=== PATIENT | male | born 1965 | race Caucasian/White ===

== ENCOUNTER 2016-12-27 18:07 | Emergency (ER) | payer SELFPAY ==
[~2016-12-27] VITALS: Ht 170.2 cm; Wt 74.0 kg
[2016-12-27 18:48] LABS: HEMATOCRIT 34.5 % (39.0-50.0); HEMOGLOBIN 12.1 g/dl (14.0-18.0); IMMATURE GRANULOCYTES 0.3 % (0.0-1.0); MEAN CELL VOLUME 83.9 fL CALC (80.0-100.0); MEAN CORPUSCULAR HGB 29.4 pG CALC (26.0-32.0); MEAN CORPUSCULAR HGB CONC 35.1 g/L CALC (32.0-36.0); NEUT# 9.57 thou/uL (1.82-7.42); RED BLOOD COUNT 4.11 mill/uL (4.70-6.10)
[2016-12-27 18:58] LABS: ALBUMIN 4.1 g/dL (3.2-5.0); ALKALINE PHOSPHATASE 87 u/l (38-126); ANION GAP 18 (6-22 (CALC)); BILIRUBIN, TOTAL 0.6 mg/dL (0.0-1.4); BUN 11 mg/dL (9-20); BUN/CREATININE RATIO 10 (12-20 (CALC)); CALCIUM 9.2 mg/dL (8.4-10.2); CARBON DIOXIDE 24 mmol/l (22-30); CHLORIDE 99 mmol/l (95-108); GFR > 60 ML/MIN (>=60 (CALC)); GFR FOR AFR.AMER. > 60 ML/MIN (>=60 (CALC)); GLUCOSE 106 mg/dL (75-110); POTASSIUM 4.2 mmol/l (3.5-5.1); SGOT/AST 22 u/l (17-59); SGPT/ALT 31 u/l (21-72); SODIUM 137 mmol/l (137-146); TOTAL PROTEIN 7.3 g/dL (6.3-8.2)
[2016-12-27 19:01] LABS: INFLUENZA A NONE DETECTED (NONE DETECT); INFLUENZA B NONE DETECTED (NONE DETECT)
[2016-12-27 23:21] VITALS: BP 99/62
== END 2016-12-27 23:22 | disposition home or self-care (01) | DRG 153 ==
LOC: ED 18:07
PROVIDERS: Emergency Medicine
DX: J02.9 Acute pharyngitis, unspecified (principal); R05 Cough
CPT/HCPCS: J0561

== ENCOUNTER 2017-03-14 11:32 | Emergency (ER) | payer SELFPAY ==
[~2017-03-14] VITALS: Ht 170.2 cm; Wt 75.0 kg
[2017-03-14 12:00] LABS: HEMATOCRIT 39.1 % (39.0-50.0); HEMOGLOBIN 13.5 g/dl (14.0-18.0); IMMATURE GRANULOCYTES 0.2 % (0.0-1.0); MEAN CELL VOLUME 87.3 fL CALC (80.0-100.0); MEAN CORPUSCULAR HGB 30.1 pG CALC (26.0-32.0); MEAN CORPUSCULAR HGB CONC 34.5 g/L CALC (32.0-36.0); NEUT# 1.9 thou/uL (1.82-7.42); RED BLOOD COUNT 4.48 mill/uL (4.70-6.10); RED CELL DISTRI WIDTH 12.9 % (11.5-15.5)
[2017-03-14 12:17] LABS: ALBUMIN 4.3 g/dL (3.2-5.0); ALKALINE PHOSPHATASE 56 u/l (38-126); ANION GAP 16 (6-22 (CALC)); BILIRUBIN, TOTAL 0.6 mg/dL (0.0-1.4); BUN 11 mg/dL (9-20); BUN/CREATININE RATIO 9 (12-20 (CALC)); CALCIUM 9.3 mg/dL (8.4-10.2); CARBON DIOXIDE 24 mmol/l (22-30); CHLORIDE 105 mmol/l (95-108); CREATININE 1.2 mg/dL (0.7-1.3); GFR > 60 ML/MIN (>=60 (CALC)); GFR FOR AFR.AMER. > 60 ML/MIN (>=60 (CALC)); GLUCOSE 114 mg/dL (75-110); POTASSIUM 4.3 mmol/l (3.5-5.1); SGOT/AST 21 u/l (17-59); SGPT/ALT 25 u/l (21-72); SODIUM 140 mmol/l (137-146); TOTAL PROTEIN 7.5 g/dL (6.3-8.2)
[2017-03-14 12:30] LABS: MYOGLOBIN 27 ng/mL (0 - 121)
[2017-03-14 13:33] LABS: URINE BILIRUBIN - DIPSTICK NEGATIVE (NEGATIVE); URINE BLOOD DIPSTICK NEGATIVE (NEGATIVE); URINE CLARITY CLEAR; URINE COLOR YELLOW; URINE GLUCOSE - DIPSTICK NEGATIVE (NEGATIVE); URINE KETONE NEGATIVE (NEGATIVE); URINE LEUK ESTERASE NEGATIVE (NEGATIVE); URINE NITRITE - DIPSTICK NEGATIVE (Negative); URINE PROTEIN - DIPSTICK TRACE mg/dL (NEG-TRACE); URINE SPECIFIC GRAVITY 1.015; URINE UROBILINOGEN - DIPSTICK 0.2 E.U./dL (0.2)
[2017-03-14 13:39] LABS: BARBITURATES NEGATIVE (NEGATIVE); COCAINE NEGATIVE (NEGATIVE); METHADONE NEGATIVE (NEGATIVE); OXCYCODONE NEGATIVE (NEGATIVE); TETRAHYDROCANNABIONOL NEGATIVE (NEGATIVE); TRICYLIC ANTIDEPRESSANTS NEGATIVE (NEGATIVE)
[2017-03-14 15:48] VITALS: BP 95/59
== END 2017-03-14 16:03 | disposition home or self-care (01) | DRG 312 ==
LOC: ED 11:32
PROVIDERS: Emergency Medicine
PROC: 0T9B70Z Drainage of Bladder with Drainage Device, Via Natural or Artificial Opening (ICD-10-PCS; principal; 2017-03-14)
DX: R55 Syncope and collapse (principal); R00.1 Bradycardia, unspecified; T50.995A Adverse effect of other drugs, medicaments and biological substances, initial encounter; Y92.007 Garden or yard of unspecified non-institutional (private) residence as the place of occurrence of the external cause

== ENCOUNTER 2018-07-25 07:47 | Day surgery (SDC) | payer OTHER ==
[~2018-07-25] VITALS: Ht 170.2 cm; Wt 75.7 kg
[~2018-07-25 07:47] MED LIST: ASPIRIN 81 LOW81 MG PO; CYCLOBENZAPR10 MG PO; GABAPENTIN100 MG PO; MULTIVITAMI9 PO; PAROXETINE20 MG PO; PROAIR HFA108 MCG/AC; RANITIDINE150 M1 PO; SIMVASTATIN40 MG PO
[2018-07-25 11:17] VITALS: BP 100/50
== END 2018-07-25 11:35 | disposition home or self-care (01) | DRG 951 ==
LOC: ENDO 07:47
PROVIDERS: ATTEND Surgery
PROC: 0DBN8ZX Excision of Sigmoid Colon, Via Natural or Artificial Opening Endoscopic, Diagnostic (ICD-10-PCS; principal; 2018-07-25)
DX: Z12.11 Encounter for screening for malignant neoplasm of colon (principal); K63.5 Polyp of colon; K57.30 Diverticulosis of large intestine without perforation or abscess without bleeding

== ENCOUNTER 2022-03-25 18:39 | Emergency (ER) | payer OTHER ==
[~2022-03-25] VITALS: Ht 170.2 cm; Wt 78.6 kg
[2022-03-25 18:46] VITALS: BP 123/87
[2022-03-25] MEDS ORDERED: NAPROXEN500 MG PO ×2 (19:23→19:42)
[2022-03-25] MEDS ORDERED: LORTAB 5/3255 MG PO ×2 (19:23→19:42)
[2022-03-25 19:46] VITALS: BP 123/87
== END 2022-03-25 19:53 | disposition home or self-care (01) | DRG 563 ==
LOC: ED 18:39
DX: S39.012A Strain of muscle, fascia and tendon of lower back, initial encounter (principal); I10 Essential (primary) hypertension; F17.200 Nicotine dependence, unspecified, uncomplicated; X58.XXXA Exposure to other specified factors, initial encounter

== ENCOUNTER 2022-10-11 20:06 | Emergency (ER) | payer OTHER ==
[~2022-10-11] VITALS: Ht 170.2 cm; Wt 80.0 kg
[~2022-10-11 20:06] MED LIST changes: +LORTAB 5/3255 MG PO; +NAPROXEN500 MG PO
[2022-10-11 20:18] VITALS: BP 133/80
[2022-10-11 20:30] VITALS: BP 127/84
[2022-10-11] MEDS ORDERED: NAPROXEN500 MG PO (20:50)
[2022-10-11 21:00] VITALS: BP 113/83
[2022-10-11 21:04] VITALS: BP 113/83
== END 2022-10-11 21:18 | disposition home or self-care (01) | DRG 605 ==
LOC: ED 20:06
DX: S60.051A Contusion of right little finger without damage to nail, initial encounter (principal); S60.221A Contusion of right hand, initial encounter; X58.XXXA Exposure to other specified factors, initial encounter

== ENCOUNTER 2023-03-17 08:26 | Emergency (ER) | payer OTHER ==
[2023-03-17] VITALS (11 sets, daily range): BP systolic 115–132; BP diastolic 76–89
[~2023-03-17] VITALS: Ht 170.2 cm; Wt 79.4 kg
[2023-03-17] MEDS ORDERED: NAPROXEN500 MG PO (11:48)
== END 2023-03-17 12:09 | disposition home or self-care (01) | DRG 556 ==
LOC: ED 08:26
DX: M79.672 Pain in left foot (principal); I10 Essential (primary) hypertension; F17.200 Nicotine dependence, unspecified, uncomplicated

== ENCOUNTER 2023-04-14 21:36 | Emergency (ER) | payer OTHER ==
[~2023-04-14] VITALS: Ht 170.2 cm; Wt 78.0 kg
[2023-04-14 21:42] VITALS: BP 145/83
[2023-04-14 21:45] VITALS: BP 148/91
[2023-04-14] MEDS ORDERED: BACTRIM DS1 TAB PO (22:24)
[2023-04-14 22:28] VITALS: BP 145/83
== END 2023-04-14 22:51 | disposition home or self-care (01) | DRG 603 ==
LOC: ED 21:36
PROC: 0H9CXZZ Drainage of Left Upper Arm Skin, External Approach (ICD-10-PCS; principal; 2023-04-14)
DX: L02.412 Cutaneous abscess of left axilla (principal); I10 Essential (primary) hypertension; F17.200 Nicotine dependence, unspecified, uncomplicated

== ENCOUNTER 2023-12-29 00:51 | Emergency (ER) | payer OTHER ==
[~2023-12-29] VITALS: Ht 170.2 cm; Wt 83.0 kg
[~2023-12-29 00:51] MED LIST changes: +BACTRIM DS1 TAB PO
[2023-12-29 01:19] VITALS: BP 122/86
[2023-12-29 02:29] VITALS: BP 118/81
[2023-12-29 05:05] VITALS: BP 133/84
== END 2023-12-29 02:40 | disposition home or self-care (01) | DRG 605 ==
LOC: ED 00:51
DX: S50.02XA Contusion of left elbow, initial encounter (principal); I10 Essential (primary) hypertension; W01.0XXA Fall on same level from slipping, tripping and stumbling without subsequent striking against object, initial encounter; Y99.0 Civilian activity done for income or pay